=== PATIENT | male | born 1975 | race Caucasian/White ===

== ENCOUNTER 2024-10-13 16:10 | Emergency (ER) | payer BC, SELFPAY ==
[2024-10-13 16:21] VITALS: BP 136/82; PULSE 105; RESP 18; TEMP 36.7; O2SAT 100
--- NOTE | 2024-10-13 16:24 | ED_ITS ---
HPI - General Adult General Chief complaint: Extremity Injury, Upper Stated complaint: Chemical Burn on finger Time Seen by Provider: 10/13/24 16:27 Source: patient Mode of arrival: ambulatory Limitations: no limitations History of Present Illness HPI narrative: 49 y/o male presented for c/o possible chemical burn to the right ring finger. Endorses redness and a blister to the finger and between the ring and little finger x5 days. States the day before onset, he used multiple chemicals to clean a gun safe, but he had worn gloves for most of the cleaning. Reports normal sensation and range of motion. Has applied cortisone cream. Denies drainage. Related Data Home Medications ?Medication ?Instructions ?Recorded ?Confirmed ?Last Taken ?Type amoxicillin 875 mg-potassium 1 tablet PO 10/13/24 Unknown History clavulanate 125 mg tablet Allergies Allergy/AdvReac Type Severity Reaction Status Date / Time Quinolones AdvReac Intermediate Joint Pain Verified 10/13/24 16:28 Review of Systems Review of Systems: CONSTITUTIONAL: Denies body aches, fever, chills, or sweats. EYES: Denies visual changes, redness, or discharge. ENT: Denies rhinorrhea, congestion CARDIOVASCULAR: Denies chest pain, palpitations, or edema. RESPIRATORY: Denies cough or dyspnea. GASTROINTESTINAL: Denies abdominal pain, nausea, vomiting, or diarrhea. SKIN: per HPI MUSCULOSKELETAL: Denies back pain, joint pain, or myalgia. NEUROLOGIC: Denies headache, numbness, tingling, or weakness. COUNT INCLUDES THE [facility] Family History Family History Mother Family history of coronary artery disease, Onset Age: 62 Father Family history of lung cancer, Onset Age: 62 Family history of malignant neoplasm of brain Patient's father is Social History Social History Smoking status: Never smoker Alcohol intake: current Comments At time of signature, I have reviewed and agree with nursing past medical, surgical, social and family history unless otherwise noted. Please see nursing chart for further information. There is no relevant family history pertinent to the presenting complaint Exam Narrative: GENERAL: Well-appearing ENT: Mucous membranes moist. Oropharynx without edema, erythema or lesions. NECK: Supple. No lymphadenopathy CHEST: Respirations even, unlabored SKIN: Warm, dry. Right 4th digit with erythema and blister over ulnar aspect of the proximal phalanx extending to web space between the 4th and 5th digit, scant oozing. Not circumferential. Minimal swelling/fluid in the blister. CMS intact to the 4th digit. NEURO: Alert and oriented x3. Course Course Emergency Course: Patient is aware of diagnosis, understands and agrees to treatment plan. Anticipatory guidance given. Patient agrees to follow-up as directed and is aware of reasons to seek care at the emergency department. Portions of this record may have been created with voice recognition software Level of Care: Express Care Visit Vital Signs Vital signs: Reviewed Medical Decision Making MDM Narrative Medical decision making narrative: Discussed physical exam findings; burn to right 4th digit. Advised supportive measures and signs/symptoms to go to the ER. Pt is appropriate for outpt treatment and f/u. Differential Diagnosis Differential Diagnosis: Burn, cellulitis, abrasion, avulsion, necrotizing fasciitis Discharge Plan Discharge Clinical Impression: Blister of finger Patient Disposition: Home, Self-Care Condition: Stable Instructions: Antibiotic Form, Blister (ED) Additional Instructions: Wash your hands before cleaning a burn. Do not touch the burn with your hands, because open blisters can easily be infected. Do not break the blisters. Gently wash the burn area every day with a mild soap and water. Some of the burned skin might come off with washing. Pat the area dry with a clean cloth or gauze. Do not put pain-relief skin sprays on gaitan, because this traps the heat inside the burn. Apply ointment as directed Do not use antibiotic ointment for more than one week Use gauze or tape to keep the dressing in place if needed. Wrap the burn loosely to avoid putting pressure on the burned skin. Do not tape a bandage so that it circles a hand, arm, or leg. This can cause swelling. Apply a clean bandage whenever it gets wet or soiled to prevent infection Tylenol 1000mg every 8 hours as needed, alternate ibuprofen 800 mg every 8 hours as needed. Follow up with your primary care provider, call tomorrow to schedule an appointment. Go to the ER for worsening symptoms or concerns Patient Language: Lao Prescriptions: New silver sulfadiazine 1 % cream 1 applic topical DAILY 7 Days Qty: 25 0RF Rx Instructions: apply a 1.5 mm thickness No Action amoxicillin-pot clavulanate 875-125 mg tablet 1 tablet PO Rx Instructions: as directed Follow-up/Referrals: UNKNOWN,DOCTOR [Primary Care Provider] -
== END 2024-10-13 16:46 | disposition home or self-care (01) ==
PROVIDERS: Emergency Provider Nurse Practitioner Family
DX: S60.424A Blister (nonthermal) of right ring finger, initial encounter (principal); X58.XXXA Exposure to other specified factors, initial encounter
CPT/HCPCS: 99203; G0463